=== PATIENT | male | born 1980 | race Caucasian/White ===

== ENCOUNTER 2018-08-08 23:23 | Emergency (ER) | payer OTHER ==
[~2018-08-08] VITALS: Ht 170.2 cm; Wt 109.8 kg
[2018-08-08 23:26] VITALS: BP 183/131; Ht 170.2 cm; Wt 109.8 kg
== END 2018-08-09 04:10 | disposition home or self-care (01) ==
LOC: ED 23:23
DX: S43.084A Other dislocation of right shoulder joint, initial encounter (principal); M79.644 Pain in right finger(s); W18.39XA Other fall on same level, initial encounter; Y93.89 Activity, other specified; Y92.89 Other specified places as the place of occurrence of the external cause; Y99.0 Civilian activity done for income or pay
CPT/HCPCS: J2704; J3490; J7030